=== PATIENT | female | born 1955 | race African-American/Black ===

== ENCOUNTER 2022-07-03 08:26 | Inpatient (IN) | payer OTHER, MEDICAID ==
[~2022-07-03] VITALS: Ht 167.6 cm; Wt 108.9 kg
[~2022-07-03 08:26] MED LIST: ACET-3161 PO; GABA800T PO; HYDR-4135 PO; METOCLOPRAMIDE HCL 10MG/2ML VIAL IV SCH
[2022-07-03] MEDS ORDERED: MORPHINE SULFATE 4 MG/ML CPJ (NOT FOR IM USE) IV STA (08:34)
[2022-07-03] MEDS ORDERED: ONDANSETRON HCL 4MG/2ML INJ IV STA (08:34)
[2022-07-03] MEDS ORDERED: SODIUM CHLORIDE 0.9% 1,000 ML IV ONE (08:45)
[2022-07-03 09:43] LABS: BASOPHILS % 0.2 % (0.0-2.0); EOSINOPHILS % 0.1 % (0.0-5.0); HEMOGLOBIN. 13.9 g/dL (12.0-16.0); LYMPHOCYTES % 20.2 % (20.0-50.0); MEAN CORPUSCULAR HEMOGLOBIN 25.7 pg (28.0-32.0); MEAN CORPUSCULAR VOLUME 79.2 fL (81.0-99.0); MEAN PLATELET VOLUME 9.1 fl (7.4-10.4); MONOCYTES % 7.9 % (2.0-8.0); NEUTROPHILS % 71.6 % (40.0-76.0); PLATELET 147 x1000/uL (130-400); RED BLOOD CELL COUNT 5.42 mill/uL (4.2-5.4); RED CELL DISTRIBUTION WIDTH 18.3 % (11.6-14.6)
[2022-07-03] MEDS ORDERED: DIATR MEGLU/DIATRIZOATE SOLN 30ML ONE (09:50)
[2022-07-03] MEDS ORDERED: IOHEXOL-300 100 ML BOTTLE ONE (09:51)
[2022-07-03 09:58] LABS: HCG SCREEN NEGATIVE
[2022-07-03 10:32] LABS: INR 1.1; PROTHROMBIN TIME 11.4 sec (9.6-11.0)
[2022-07-03 10:33] LABS: CHLORIDE 109 mEq/L (98-107)
[2022-07-03] MEDS ORDERED: KETOROLAC 30MG/ML VIAL IV ONE (12:30)
[2022-07-03] MEDS ORDERED: CLONIDINE 0.1MG TABLET PO PRN (15:15)
[2022-07-03] MEDS ORDERED: KETOROLAC 15MG/ML VIAL IV PRN (15:15)
[2022-07-03] MEDS ORDERED: MAGNESIUM/ALUMINUM HYDROXIDE/SIMETHICONE 30ML UDC PO PRN (15:15)
[2022-07-03] MEDS ORDERED: IPRATROPIUM/ALBUTEROL 0.5-3(2.5)MG/3ML NEB NEB PRN (15:15)
[2022-07-03] MEDS ORDERED: DOCUSATE SODIUM 100MG CAPSULE PO PRN (15:15)
[2022-07-03] MEDS ORDERED: GUAIFENESIN 200MG/10ML SUGAR FREE UDC PO PRN (15:15)
[2022-07-03] MEDS ORDERED: ACETAMINOPHEN 325MG TABLET PO PRN ×2 (15:15)
[2022-07-03] MEDS ORDERED: NA PHOS,M-B/NA PHOS,DI-BA ENEMA 118ML PR PRN (15:15)
[2022-07-03] MEDS: ONDANSETRON HCL 4MG/2ML INJ IV PRN (16:23)
[2022-07-03] MEDS: METOCLOPRAMIDE HCL 10MG/2ML VIAL IV SCH (20:05)
[2022-07-03] MEDS: ENOXAPARIN 30MG/0.3ML SYR SUBCUT SCH (21:41)
[2022-07-03 23:25] LABS: T4 FREE 1.47 ng/dL (0.76-1.46)
[2022-07-03 23:42] LABS: VITAMIN B12 SERUM 1425 pg/mL (211-911)
[2022-07-04] VITALS: BP 134/70
[2022-07-04] MEDS ORDERED: KETOROLAC 30MG/ML VIAL IV PRN
[2022-07-04 00:07] LABS: FOLIC ACID (FOLATE) SERUM > 20.00 ng/mL (>5.38)
[2022-07-04] MEDS: METOCLOPRAMIDE HCL 10MG/2ML VIAL IV SCH ×2 (00:18→05:40)
[2022-07-04 01:04] LABS: CLARITY URINE CLEAR (CLEAR); COLOR URINE DARK YELLOW (YELLOW); KETONES URINE 1+ (NEGATIVE); LEUKOCYTE ESTERASE URINE TRACE (NEGATIVE); NITRITE URINE NEGATIVE (NEGATIVE); OCCULT BLOOD URINE NEGATIVE (NEGATIVE); PH URINE 6.5 (4.5-8.0); PROTEIN URINE 1+ (NEGATIVE); SPECIFIC GRAVITY URINE 1.021 (1.005-1.030)
[2022-07-04 01:33] LABS: *AMPHETAMINES SCREEN URINE NEGATIVE (NEGATIVE); *BARBITURATES SCREEN URINE NEGATIVE (NEGATIVE); *BENZODIAZEPINES SCREEN URINE NEGATIVE (NEGATIVE); *COCAINE SCREEN URINE NEGATIVE (NEGATIVE); CANNABINOID URINE SCREEN PRESUMTIVE POSITIVE (NEGATIVE); METHADONE URINE SCREEN NEGATIVE (NEGATIVE); OPIATES URINE SCREEN PRESUMTIVE POSITIVE (NEGATIVE); PHENCYCLIDINE URINE SCREEN NEGATIVE (NEGATIVE)
[2022-07-04 04:00] VITALS: BP 140/74
[2022-07-04 07:49] VITALS: BP 151/78
[2022-07-04] MEDS ORDERED: POTASSIUM CHLORIDE 20MEQ/PACKET PO NR (09:00)
[2022-07-04] MEDS ORDERED: DEXAMETHASONE 4MG TABLET PO SCH (09:00)
[2022-07-04] MEDS: ONDANSETRON HCL 4MG/2ML INJ IV PRN (10:08)
[2022-07-04] MEDS: ENOXAPARIN 30MG/0.3ML SYR SUBCUT SCH (10:19)
[2022-07-04] MEDS ORDERED: KETOROLAC 15MG/ML VIAL IV PRN (18:30)
== END 2022-07-04 12:07 | disposition home or self-care (01) | DRG 392 ==
LOC: ER 08:26 → 6WST 12:48 → EDBEDREQ 12:53 → EDBEDREQTM 12:53
PROVIDERS: ADMIT Internal Medicine; ATTEND Internal Medicine
DX: K29.70 Gastritis, unspecified, without bleeding (principal); J45.909 Unspecified asthma, uncomplicated; M48.061 Spinal stenosis, lumbar region without neurogenic claudication; D25.9 Leiomyoma of uterus, unspecified; D70.9 Neutropenia, unspecified; E66.9 Obesity, unspecified; E87.6 Hypokalemia; F12.10 Cannabis abuse, uncomplicated; I10 Essential (primary) hypertension; Z76.5 Malingerer [conscious simulation]; Z90.49 Acquired absence of other specified parts of digestive tract; Z79.899 Other long term (current) drug therapy; Z88.0 Allergy status to penicillin; Z88.8 Allergy status to other drugs, medicaments and biological substances; Z68.38 Body mass index [BMI] 38.0-38.9, adult
CPT/HCPCS: 36415; 74176; 80053; 80305; 81003; 82607; 82746; 83036; 83540; 83550; 84439; 84443; 84703; 85025; 99285; J1650; J1885; J2270; J2405; J2765; J7030; Q9963; Q9967